=== PATIENT | male | born 1965 | race Asian ===

== ENCOUNTER 2017-10-16 09:51 | Emergency (ER) | payer OTHER ==
[2017-10-16] MEDS ORDERED: DEXAMETHASONE 10 MG/ML VIAL PO STA (11:39)
[2017-10-16] MEDS ORDERED: NEOMYCIN/POLYMYX/DEXAMETH OPHTH DROPS 5 ML EACHEYE STA (11:39)
--- NOTE | 2017-10-16 11:42 | ED Physician Documentation ---
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 Redness to his eyes has increased dramatically he has some tenderness to his sinuses as well he is coughing up some yellow-green phlegm and he has some reduced hearing and fullness in the left ear. Review of Systems Constitutional: reports: Fever, Chills, Myalgias, Fatigue Eyes: reports: Discharge, Irritation. denies: Decreased vision Ears: reports: Other (fullness in the left ear) Nose: reports: Rhinorrhea / runny nose, Congestion, Sinus pressure / pain Throat: reports: Sore throat Cardiac: denies: Chest pain / pressure, Palpitations Respiratory: reports: Cough. denies: Dyspnea GI: denies: Nausea, Vomiting : denies: Dysuria, Frequency PD PAST MEDICAL HISTORY - Past Medical History Past Medical History: No Cardiovascular: None Respiratory: None Neuro: None Endocrine/Autoimmune: None GI: None - Past Surgical History Past Surgical History: No - Present Medications Home Medications: Ambulatory Orders Medication Instructions Recorded Confirmed Azithromycin [Zithromax] 250 mg PO DAILY #6 tablet 10/16/17 Neomycin/Poly/Dex Ophth Drops 1 drops EACHEYE QID #1 bottle 10/16/17 [Maxitrol Ophth Drops] - Allergies Allergies/Adverse Reactions: Allergies Allergy/AdvReac Type Severity Reaction Status Date / Time No Known Drug Allergies Allergy Verified 10/16/17 10:16 - Social History Does the pt smoke?: No Smoking Status: Never smoker Does the pt drink ETOH?: No Does the pt have substance abuse?: No - Immunizations Immunizations are current?: Yes PD ED PE NORMAL - Vitals Vital signs reviewed: Yes (tachy ) - General General: Alert and oriented X 3, No acute distress, Well developed/nourished - HEENT HEENT: Atraumatic, PERRL, EOMI, Pharynx benign, Other (The left TM is mildly inflamed without distortion of the landmarks. The eyes are with marked inflamation bilaterally without exudate. There is sinus point tenderness to the maxillary sinuses bilaterally ) - Neck Neck: Supple, no meningeal sign, No bony TTP - Cardiac Cardiac: RRR, No murmur - Respiratory Respiratory: No respiratory distress, Clear bilaterally - Abdomen Abdomen: Soft, Non tender - Back Back: No CVA TTP, No spinal TTP - Derm Derm: Normal color, Warm and dry, No rash - Extremities Extremities: No deformity, No edema - Neuro Neuro: No motor deficit, No sensory deficit Eye Opening: Spontaneous Motor: Obeys Commands Verbal: Oriented GCS Score: 15 - Psych Psych: Normal mood, Normal affect Results - Vitals Vitals: Vital Signs - 24 hr 10/16/17 10:13 Temperature 36.0 C L Heart Rate 103 H Respiratory 18 Rate Blood Pressure 124/74 O2 Saturation 100 Oxygen O2 Source Room air PD MEDICAL DECISION MAKING - ED course Complexity details: considered differential, d/w patient ED course: 51-year-old male has had this conjunctivitis similarly previously he has significant erythema to his conjunctivae bilaterally both the scleral and lower conjunctival sac are markedly inflamed. He does have on examination evidence of otitis on the left side he also has some sinus point tenderness bilaterally to the maxillary sinuses. He is producing phlegm. Here in the emergency department he is given 10 mg of dexamethasone he is administered Maxitrol ophthalmic drops and we will place him on some azithromycin. Departure - Departure Disposition: 01 Home, Self Care Clinical Impression: Unspecified acute conjunctivitis, bilateral Qualifiers: Acute conjunctivitis type: bacterial Qualified Code(s): H10.33 - Unspecified acute conjunctivitis, bilateral Otitis media Qualifiers: Otitis media type: suppurative Chronicity: acute Laterality: left Recurrence: not specified as recurrent Spontaneous tympanic membrane rupture: without spontaneous rupture Qualified Code(s): H66.002 - Acute suppurative otitis media without spontaneous rupture of ear drum, left ear Condition: Stable Instructions: ED Otitis Media Acute Adult, ED Conjunctivitis Nonspecific Follow-Up: Dwight Kumar MD [Primary Care Provider] - Prescriptions: Azithromycin [Zithromax] 250 mg PO DAILY #6 tablet Neomycin/Poly/Dex Ophth Drops [Maxitrol Ophth Drops] 1 drops EACHEYE QID #1 bottle
[2017-10-16 11:55] VITALS: BP 129/79
== END 2017-10-16 11:53 | disposition home or self-care (01) ==
LOC: ED 09:51
DX: H10.33 Unspecified acute conjunctivitis, bilateral (principal); H66.002 Acute suppurative otitis media without spontaneous rupture of ear drum, left ear
CPT/HCPCS: 99283; J3490